=== PATIENT | female | born 1970 | race Caucasian/White ===

== ENCOUNTER 2018-02-27 00:57 | Emergency (ER) | payer MEDICAID ==
[2018-02-27] MEDS: ALBUTEROL 0.083% (NEB) 2.5 MG/3 ML AMP HHN (01:24)
[2018-02-27] MEDS: IPRATROPIUM (NEB) 0.5 MG/2.5 ML AMP HHN (01:24)
[2018-02-27] MEDS: DEXAMETHASONE 10 MG/ML 1 ML INJ IM (01:33)
== END 2018-02-27 03:20 | disposition home or self-care (01) ==
LOC: FTE 00:57
DX: J45.901 Unspecified asthma with (acute) exacerbation (principal)
CPT/HCPCS: 71046; 81025; 94664; 96372; 99284-25